=== PATIENT | male | born 1950 ===

== ENCOUNTER 2018-01-07 11:36 | Emergency (ER) | payer MEDICARE ==
[2018-01-07 12:04] VITALS: BP 127/77
--- NOTE | 2018-01-07 12:20 | UC ---
Lower Extremity/Ankle HPI - HPI Summary HPI Summary: 67-year-old male presents with complaints of swelling to the fourth left toe. States on 12/14/2017 he accidentally struck the leg of a wooden stool with this toe. He did note some angulation of the toe at the time as well as some mild pain and swelling. He lissette taped the toe and use some [id number] ibuprofen as needed but is continued to notice some swelling of that toe. Denies any pain, numbness, or tingling and states that the deformity seems to be less prominent. - History of Current Complaint Chief Complaint: UCLowerExtremity Stated Complaint: LEFT FOOT TOE COMPLAINT Time Seen by Provider: 01/07/18 11:51 Hx Obtained From: Patient Onset/Duration: Sudden Onset Severity Initially: Mild Severity Currently: Mild Pain Intensity: 0 Aggravating Factor(s): Nothing Alleviating Factor(s): Nothing Able to Bear Weight: Yes - Allergies/Home Medications Allergies/Adverse Reactions: Allergies Allergy/AdvReac Type Severity Reaction Status Date / Time bupropion [From Wellbutrin] Allergy Severe Hives Verified 01/07/18 11:55 Sulfa (Sulfonamide Allergy Severe Hives Verified 01/07/18 11:55 Antibiotics) Home Medications: Home Medications Atorvastatin* [Lipitor 10 MG*] 10 mg DAILY 01/07/18 [History Confirmed 01/07/18] Budesonide/Formote 80/4.5(NF) [Symbicort 80/4.5 (NF)] 1 puff DAILY 01/07/18 [ History Confirmed 01/07/18] Escitalopram (NF) [Lexapro 20 mg (NF)] 1 tab DAILY 01/07/18 [History Confirmed 01/07/18] Fluticasone NASAL SPRAY 50MCG* [Flonase NASAL SPRAY 50MCG*] 1 spray DAILY [History Confirmed 01/07/18] Methylphenidate TAB* [Ritalin TAB*] 1 tab DAILY 01/07/18 [History Confirmed 09/19] PMH/Surg Hx/FS Hx/Imm Hx Endocrine History: Dyslipidemia Respiratory History: Asthma Psychological History: Depression - Surgical History Surgical History: None - Family History Family History: Noncontributory - Social History Occupation: Retired Lives: With Family Alcohol Use: Occasionally Substance Use Type: None Smoking Status (MU): Never Smoked Tobacco - Immunization History Most Recent Tetanus Shot: UTD Review of Systems Constitutional: Negative Skin: Negative Respiratory: Negative Cardiovascular: Negative Musculoskeletal: Other: - See history of present illness Is Patient Immunocompromised?: No All Other Systems Reviewed And Are Negative: Yes Physical Exam Triage Information Reviewed: Yes Appearance: Well-Appearing, No Pain Distress, Well-Nourished Vital Signs: Initial Vital Signs Temp 98.2 F 01/07/18 11:56 Pulse 65 01/07/18 11:56 Resp 16 01/07/18 11:56 BP 127/77 01/07/18 11:56 Pulse Ox 98 01/07/18 11:56 Vital Signs Reviewed: Yes Respiratory: Positive: No respiratory distress Cardiovascular: Positive: Pulses Normal, Brisk Capillary Refill Musculoskeletal: Positive: Other: - Mild swelling of the left 4th toe. No erythema, ecchymosis, or gross deformity noted. Neurological: Positive: Alert, Other: - Sensation intact. Skin Exam: Normal Diagnostics - Radiology No standard instances Xray Interpretation: Positive (See Comments) Radiology Interpretation Completed By: ED Physician - Non-displaced transverse fracture of the proximal epiphysis left proximal phanlge with extension into the MTP., Radiologist - Comminuted fracture base of the proximal phalanx fourth digit Lower Extremity Course/Dx - Differential Dx/Diagnosis Differential Diagnosis/HQI/PQRI: Contusion, Fracture (Closed), Sprain, Strain, Tendonitis Provider Diagnoses: nondisplaced closed comminuted fracture proximal phalange left 4th toe Discharge - Sign-Out/Discharge Documenting (check all that apply): Patient Departure All imaging exams completed and their final reports reviewed: Yes - Discharge Plan Condition: Stable Disposition: HOME Patient Education Materials: Toe Fracture (ED) Referrals: Mavis Cummins MD [Primary Care Provider] - Hiram Lujan MD [Medical Doctor] - 7 Days (Call for appointment.) Additional Instructions: Continue to lissette tape your 3rd and 4th toes. Use the post-op shoe provided to provide splinting and support of the fracture. You may remove to sleep and shower but should wear at all other times. Keep your foot elevated to help reduce swelling. Take over the counter acetaminophen (Tylenol) or ibuprofen (Advil, Motrin) according to directions as needed for any pain. Follow up with Dr. Lujan, orthopedic surgery. Call for appointment. - Billing Disposition and Condition Condition: STABLE Disposition: Home
--- NOTE | 2018-01-07 12:37 | RAD ---
HISTORY: blunt force trauma 4th toe COMPARISONS: None VIEWS: 3 , Frontal, lateral, and oblique views of the left foot FINDINGS: BONE DENSITY: Normal. BONES: There is a comminuted nondisplaced fracture involving the base of the proximal phalanx of the fourth digit, with articular extension. JOINTS: There is no arthropathy. ALIGNMENT: There is no dislocation. SOFT TISSUES: Unremarkable. OTHER FINDINGS: None. IMPRESSION: COMMINUTED FRACTURE OF THE BASE OF THE PROXIMAL PHALANX OF THE FOURTH DIGIT
== END 2018-01-07 12:52 | disposition home or self-care (01) ==
LOC: UCCORT 11:36
DX: S92.515A Nondisplaced fracture of proximal phalanx of left lesser toe(s), initial encounter for closed fracture (principal); W22.03XA Walked into furniture, initial encounter; Y93.9 Activity, unspecified; Y92.9 Unspecified place or not applicable; Z88.1 Allergy status to other antibiotic agents; Z88.8 Allergy status to other drugs, medicaments and biological substances; E78.5 Hyperlipidemia, unspecified; F32.9 Major depressive disorder, single episode, unspecified; J45.909 Unspecified asthma, uncomplicated
CPT/HCPCS: 99213; G0463